=== PATIENT | female | born 1980 | race Caucasian/White ===

== ENCOUNTER 2016-05-04 13:22 | Emergency (ER) | payer OTHER ==
[2016-05-04 13:27] VITALS: BP 141/87; PULSE 87; TEMP 98.6; BMI 24.7
[2016-05-04] MEDS ORDERED: KETOROLAC TROMETHAMINE 30 MG/1 ML VIAL IM ONE (13:33)
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
[2016-05-04] MEDS ORDERED: KETOROLAC TROMETHAMINE 30 MG/1 ML VIAL ONE (13:55)
== END 2016-05-04 15:08 | disposition home or self-care (01) ==
LOC: FER 13:22
PROC: 3E0233Z Introduction of Anti-inflammatory into Muscle, Percutaneous Approach (ICD-10-PCS; principal; 2016-05-04)
DX: M79.1 Myalgia (principal); J45.909 Unspecified asthma, uncomplicated; E03.9 Hypothyroidism, unspecified
CPT/HCPCS: 72050-TC; 73562-TC-RT; 84703; 99282-25